=== PATIENT | female | born 1940 | race Caucasian/White ===

== ENCOUNTER 2020-11-29 14:48 | Emergency (ER) | payer MEDICARE ==
[~2020-11-29] VITALS: Ht 160 cm; Wt 56.7 kg
--- NOTE | 2020-11-29 15:00 | NUR ---
patient came in to the er c/o "was out running this am tripped and fell +shoulder and LE pain Left side, on room air, breathing evenly and unlabored. Connected to the monitor and pulse ox. kept comfortable, will continue to monitor accordingly.
[2020-11-29] MEDS ORDERED: HYDROCODONE/APAP 5/325MG TABLET PO ONE (15:30)
[2020-11-29] MEDS ORDERED: ONDANSETRON 4 MG TAB.RAPDIS SL ONE (15:30)
[2020-11-29] MEDS ORDERED: HYDROCODONE/APAP 5/325MG TABLET ONE (15:34)
[2020-11-29] MEDS ORDERED: ONDANSETRON 4 MG TAB.RAPDIS ONE (15:34)
[2020-11-29] MEDS ORDERED: IBUP-1955 PO (16:21)
[2020-11-29] MEDS ORDERED: HYDR-4275 PO (16:22)
[2020-11-29 16:36] VITALS: BP 145/75
--- NOTE | 2020-11-29 16:37 | NUR ---
Patient discharged to home in stable condition. Written and verbal after care instructions given. Patient verbalizes understanding of instruction.
== END 2020-11-29 16:36 | disposition home or self-care (01) ==
LOC: ER 14:48
DX: S42.252A Displaced fracture of greater tuberosity of left humerus, initial encounter for closed fracture (principal); S92.354A Nondisplaced fracture of fifth metatarsal bone, right foot, initial encounter for closed fracture; E03.9 Hypothyroidism, unspecified; Z86.73 Personal history of transient ischemic attack (TIA), and cerebral infarction without residual deficits; Z79.899 Other long term (current) drug therapy; W18.39XA Other fall on same level, initial encounter; Y93.89 Activity, other specified; Y92.89 Other specified places as the place of occurrence of the external cause; Y99.8 Other external cause status
CPT/HCPCS: 29515; 73030; 73060; 73630; 99284; Q0162